=== PATIENT | male | born 1940 | race Caucasian/White ===

== ENCOUNTER 2020-05-09 07:09 | Inpatient (IN) | payer MEDICARE, OTHER ==
[~2020-05-09] VITALS: Ht 190.5 cm; Wt 86.2 kg
--- NOTE | ~2020-05-09 | OP ---
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 POSTOPERATIVE DIAGNOSIS: Severe degenerative joint disease of the left hip. PROCEDURE PERFORMED: Left total hip arthroplasty utilizing the MicroPort system with the following implants, a size 9 press-fit femoral stem, a size 62-mm press-fit hemispherical acetabular shell, a size 36-mm standard length ceramic head, a 36 mm x 62 mm high wall polyethylene liner, and two 6.5 mm x 25 mm self-tapping bone screws. SURGEON: Jonathan Schneider DO REMEDIATION TECHNICIAN: Jose Henry DO REMEDIATION TECHNICIAN #2: Lay Chester DO ANESTHESIA: General with local anesthetic field block. ESTIMATED BLOOD LOSS: 400 mL. DRAINS: None. SPECIMENS: None. COMPLICATIONS: None. CONDITION: Stable to PACU. DISPOSITION: PACU to home. GROSS FINDINGS: Intraoperative examination of left hip demonstrated severe degenerative joint disease of the left hip with complete [place] [address] OPERATIVE REPORT Name: RENETTA CALDERON Room: [facility] Aileen Rao#: [id number] Admission: 05/09/20 Attend Phys: Paxton Johnson Discharge: Date of : 42 Report #: [id number] of the femoral acetabular joint with eburnated bone to the entirety of the acetabulum, the superior aspect of the femoral head with flattening of the femoral head and significant periarticular osteophytic lipping throughout the femoral head as well as the acetabular rim with calcification of the labrum as well as a deficiency of the superior aspect of the acetabulum as well as normal joint effusion and hypertrophic synovitis. INDICATIONS FOR PROCEDURE: The patient is a pleasant 79-year-old male, who has an ongoing left hip pain and weakness for greater than 3 months and has been refractory to conservative care, consisting of rest, ice, nonsteroidal anti-inflammatories, activity modification and home physical therapy exercises. Therefore, the patient was then subsequently diagnosed with severe degenerative joint disease of the left hip and subsequently recommended to undergo left total hip arthroplasty. Therefore, the risks, benefits, treatment options, alternatives, indications were discussed with the patient. Risks include but not limited to damage to surrounding neurovascular structures, continued pain, continued bleeding, need for repeat surgery, leg lengthening, nerve palsies, iatrogenic fracture, rhabdomyolysis, instability requiring reductions and potential revision, DVT, PE, as well as inherent complications of anesthesia. The patient assumed the risks and wishes to proceed with surgery. DESCRIPTION OF PROCEDURE: The patient was seen in the preop holding area where consent was obtained and signed. Left lower extremity was marked and initialed. He was then transferred back to the operative suite and placed supine on the operating room table. He was given the benefit of general anesthetic and he was placed into the right lateral decubitus position with a well placed acetabular roll and all bony prominences were well padded. He was positioned and stabilized utilizing the pegboard and safety strap. Left lower extremity was then sterilely prepped utilizing Hibiclens scrub followed by alcohol rinse and then ChloraPrep x 2 and then draping in a normal sterile fashion. Timeout was then had indicating appropriate patient, procedure to be performed, operative site and operative surgeon, preoperative antibiotics and all other imaging were displayed. All in attendance were in agreeance. Next, the surgery began with a curvilinear incision centered over the anterior aspect of the femur and curving posteriorly by the greater trochanter. Incision was made with a 10 blade scalpel through the skin and subcutaneous tissues and then sharp dissection was then carried out through the subcutaneous fat down to the level of the IT band. Next, the IT band was then incised with a second 10 blade scalpel and then the incision was then extended inferiorly down the femur on the anterior aspect as well as superiorly and curving with the incision. This allowed visualization of the gluteus medius muscles. Charnley retractor was then placed through the IT band with care to visualize the sciatic nerve and to not retract the sciatic nerve; however, protected throughout the entirety of the case. Next, approximately one-third of the inferior aspect of the gluteus medius and minimus conjoined tendon was then elevated off of the capsule with [address] [address] OPERATIVE REPORT Name: RENETTA CALDERON Room: 150-[facility] Jalen#: [id number] Admission: 05/09/20 Attend Phys: Paxton Johnson Discharge: Date of : 42 Report #: [id number] electrocautery. The leg was then gradually externally rotated until full visualization of the capsule was identified. The capsule was then cauterized with Aquamantys and then H capsulotomy was then subsequently performed. Once full superior and inferior capsular flaps were then performed, the hip was then dislocated. The inferior neck of the capsule was then elevated off of the femur with electrocautery until full visualization of the neck and lesser trochanter were able to be palpated as well as the greater trochanter saddle area was able to be identified. Next, the neck cut was then drawn out with electrocautery and then subsequently the neck cut was then performed resecting approximately 1 fingerbreadth above the lesser trochanter and aiming towards the saddle of the greater trochanter. Head and neck were then subsequently removed, at which point, an incision was then subsequently directed to the acetabulum where remaining periosteal sleeves were then subsequently removed and was then cauterized with the Aquamantys and then subsequently removed as well. Hash ledbetter were then placed into the inferior capsule to allow for increased mobility and inability to be retracted. Once a full visualization of the acetabulum was then subsequently identified, the head was then measured to a size 52 mm and therefore reaming began with a size 52 mm and then sequential reaming was then subsequently performed to a size of 61-mm reamer. A 62-mm acetabular shell trial was then performed and determined to have adequate position bite seen. Therefore, the acetabulum was then thoroughly irrigated and there was noted to be significant bleeding bone as well as obliteration of the fovea with care not to penetrate the medial wall. Therefore, the final 62-mm acetabular shell was loaded on the insertion handle and then placed in appropriate position with appropriate version with approximately 10 degrees of anteversion inside that and 45 degrees of abduction. This was then mounted in appropriate position with excellent bite. Once the acetabulum was fully seated, insertion handle was then removed and the 2 cancellous screws were then drilled utilizing a 25-mm drill bit and measured to be 25 mm in length. They were subsequently inserted with full seating with adequate bite. Next, the inside of the cap was then thoroughly irrigated and the acetabular liner was then placed in the appropriate position with the high wall extending from the 11 to 1 o'clock position, malleted into appropriate position with full seating with all tabs being down. Next, attention was then directed to the femur and the leg was then dropped into the bag and externally rotated. The box osteotome was then used to remove the remnant of the neck as well as a rongeur to remove the remnant of the neck. A femoral canal finder was then subsequently placed down the canal followed by lateralizer and then sequential broaching was then performed up to a size 9 femur. This had adequate stability as well as length and version. Next, multiple trials of head and neck combination were then performed with a standard neck and a standard head allowing the full stability without overlengthening the patient. This was then confirmed on intraoperative x-ray. Next, trial components were then subsequently removed. Femur was then thoroughly irrigated and a final size 9 with a standard offset was then malleted into appropriate position with full seating. Inspection of the bone demonstrated no presence of the calcar fracture being evident. Then, a 36-mm ceramic [place] [address] OPERATIVE REPORT Name: KVNGRENETTA Chloe Room: [address] Jalen#: [id number] Admission: 05/09/20 Attend Phys: Macho F. Sudholt, D Discharge: Date of : 41 Report #: [id number] neck length was then placed on the cleansed and dried trunnion and then malleted full seating. This was unable to be removed with a two-finger test. Hip was then finally reduced and determined to have a full range of motion with no dislocation at maximum flexion and abduction or maximum abduction and external rotation with adequate shuck and soft tissue tension. The gluteus medius was able to be reapproximated into the anatomic footprint. Next, the wound was then thoroughly irrigated. The capsule was then closed utilizing #1 Vicryl in [id number] interrupted stitches followed by a repair of the gluteus medius tendon with a #5 Ti-Cron [id number] transosseous bone tunnels and then oversewed with #1 Vicryl. Then, the IT band was then closed utilizing #1 Vicryl in [id number]-dk-[id number] interrupted stitches followed by a running #1 Stratafix. Then, wound was then thoroughly irrigated again and subcutaneous fat was then closed utilizing #1 Vicryl running locking fashion followed by skin closure of a 2-0 Vicryl inverted interrupted subcuticular stitches followed by running 3-0 Stratafix subcuticular stitch, skin glue and then sterile dressing of SelectSilver and then LUIS hose were then applied. Abduction brace was then applied and the patient was then transferred back to PACU in normal stable condition. Sponge and needle counts were correct x [address] Schneider was present for all critical aspects of the case. By: [id number] Schneider, /nt
[~2020-05-09 07:09] MED LIST: LOSARTAN-HCTZ1 EAC3 PO; TRAMADOL 50 MG50 MG PO
[2020-05-09 08:30] VITALS: BP 126/77
[2020-05-09 15:53] VITALS: BP 87/54
[2020-05-09 16:00] VITALS: BP 87/54
--- NOTE | 2020-05-09 16:28 | NUR ---
79 YR OLD MALE ADMITTED TO ROOM 114 S/P LEFT TOTAL KNEE. PT ARRIVED BY BED, GROGGY BUT EASILY AROUSED. PT SETTLED INTO ROOM, ORIENTED TO BED CONTROLS AND CALL LIGHT. PT IS ACCOMPANIED BY HIS NEPHEW AND GIVES HIS PERMISSION TO DISCUSS HIM WITH NEPHEW PRESENT. HIP PRECAUTIONS INITIATED POST OP. DRESSING TO THE LEFT HIP IS C/D/I WITH ICE PACK IN PLACE. FALL PRECAUTIONS AND HOURLY ROUNDING WILL CONTINUE.
[2020-05-09 20:00] VITALS: BP 102/69
[2020-05-10 00:17] VITALS: BP 105/66
[2020-05-10 03:49] LABS: HEMATOCRIT 33.7 % (42.0-52.0); HEMOGLOBIN 11.3 gm/dL (14.0-18.0); MCH 30.8 pg (26.0-34.0); MCHC 33.7 g/dL (28.0-37.0); MCV 91.4 fL (80.0-100.0); MPV 7.3 fl. (7.2-11.1); RBC 3.69 mil/uL (4.50-6.00); RDW-CV 13.7 % (10.5-14.5); WBC 15.8 thou/uL (4.0-11.0)
[2020-05-10 03:55] VITALS: BP 105/62
[2020-05-10 04:10] LABS: ALBUMIN 2.7 g/dL (3.4-5.0); CALCIUM 7.9 mg/dL (8.5-10.1); CREATININE 1.2 mg/dL (0.6-1.3); MAGNESIUM 1.7 mg/dL (1.8-2.4); POTASSIUM 3.9 mmol/L (3.5-5.1); TOTAL BILIRUBIN 0.6 mg/dL (<0.1-1.0); TOTAL PROTEIN 5.6 g/dL (6.4-8.2)
--- NOTE | 2020-05-10 06:40 | NUR ---
Alert and oriented x 4. He has a L hip mepilex dressing which is clean,dry and intact. His vitals are stable. He has O2 at 2L n/c and capno hasn't alarmed much. He was medicated x 2 for pain. He did not void on his own this shift. Bladderscan at 2230 was 683, straight cath was 750 mls. He still has not voided. Bladderscan at 0640 was 87mls. Will continue to monitor.
[2020-05-10 07:30] VITALS: BP 128/69
--- NOTE | 2020-05-10 08:30 | NUR ---
pt upset that he doesn't have something to sit on. say's the recliner chairs are hard. informed him that waffle coushion was ordered and we will bring it in as soon as we get it. c/o breakfast being cold but refused this nurse to warm it up. also c/o not having coffee. coffee on breakfast tray. this nurse went and got him fresh cup of coffee.
--- NOTE | 2020-05-10 10:50 | NUR ---
SPOKE WITH PT. HE WAS IN THE CHAIR. STATED HIS PAIN IS WELL CONTROLLED WITH PAIN MEDS. HE LIVES IN [place], [place].([address] HE HOPES TO GO HOME TODAY. HIS NEPHEW WILL COME TO PICK HIM UP. HE IS ALREADY HERE IN . HE WILL DRIVE HIM UP TO [facility], SO PT.WOULD LIKE TO GET EARLY START POSSIBLE. SON IS COMING FROM [place] TO STAY WITH HIM LONG NEEDED. SON IS RETIRED. PT.HAS A FRONT WHEEL WALKER THAT IS HIS FROM HOME. HE USES [facility] IN [place]. TOLD HIM I WOULD CALL IN BLOOD THINNER BUT COULD NOT CALL IN PAIN MEDS. HE UNDERSTOOD. HE WOULD LIKE TO SEE FOR FOLLOW UP IN THE [facility] OFFICE IF POSSIBLE. CM WILL MAKE APPT.
--- NOTE | 2020-05-10 14:44 | NUR ---
pt unable to urinate. 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 bladder scan shows over 700mls in bladder. moreira cath 16 nepali inserted without difficulty and obtained 700 mls out with urine still in tubing noted. patient tolerated well.
--- NOTE | 2020-05-10 15:00 | NUR ---
PT UNSURE IF HE WANTS TO FOLLOW UP IN [place] [facility]. BOTH OFFICE PHONE NUMBERS PUT ON DISCHARGE INSTRUCTIONS. LEFT MESSAGE AT OFFICE TO SEE IF HE WANTS PT.TO HAVE HOME HEALTH AT DISCHARGE. NO REUTRN CALL. NURSING TO ASK RESIDENT IN AM. CM CALLED IN PRESCRIPTION WRITTEN FOR SALLY TO HIS PHARMACY[facility] IN [facility]-[phone]. NURSING WILL NEED TO CALL IN AM TO GET COPAY.
[2020-05-10 16:02] VITALS: BP 131/72
[2020-05-10 17:06] VITALS: BP 131/72
--- NOTE | 2020-05-10 18:20 | NUR ---
A&OX 4, A LITTLE FOREGETFUL AT TIMES. PWD. LEFT HIP DRESSING C, D, & I. IV LEFT AC WITH 1/2 NS AT 80MLS/HR. LUNGS CLEAR, HEART TONES REGULAR. +BS X 4 QUADS. PEDAL PULSES PRESENT 2+ NO EDEMA NOTED. HAS THIGH HIGH TEDS ON. FOOT PUMPS WHEN IN BED. ICE TO LEFT HIP. C/O CHAIR BEING TO HARD FOR BOTTOM. WAFFLE CUSHION OBTAINED AND PUT ON CHAIR FOR PATIENTS COMFORT. UNABLE TO URINATE TODAY. ORDER OBTAINED FOR INDWELLING NDIAYE CATH. 16 PORTUGUESE INSERTED WITHOUT DIFFICULTY AND OBTAINED 700MLS RAPID RETURN. SITTING UP IN CHAIR MOST OF DAY VISITING WITH SON. MAG 1.7 IV MAG GIVEN PER ORDER. NO OTHER C/O, WILL CONTINUE TO MONITOR.
[2020-05-10 22:00] VITALS: BP 109/55
[2020-05-11 04:00] VITALS: BP 113/54
--- NOTE | 2020-05-11 05:16 | NUR ---
PATIENT ALERT AND ORIENTED X 4 WITH SOME FORGETFULNESS. HOURLY ROUNDING COMPLETED. DRESSING LEFT HIP CLEAN AND DRY. ABDUCTION WEDGE IN PLACE. REFUSED TURNS. HEELS ELEVATED UP OFF OF BED. COTTON PLACED BETWEEN 5TH AND 4TH TOES ON LEFT FOOT DUE TO PAIN CAUSED WITH THE SQUEEZING OF LUIS HOSE AND FOOT PUMPS. PATIENT STATED THIS WAS EFFECTIVE. MEDICATED FOR PAIN LEFT HIP X 1 THIS SHIFT TO GOOD EFFECT. FALL PRECAUTIONS IN PLACE. PASSING GAS BUT NO BM THIS SHIFT. BOWEL MEDICATIONS PROVIDED HS. NDIAYE PATENT TO DEPENDENT DRAINAGE WITH ADEQUATE URINARY OUTPUT. VITAL SIGNS STABLE. CONTINUE TO MONITOR.
[2020-05-11 05:18] LABS: HEMATOCRIT 28.3 % (42.0-52.0); HEMOGLOBIN 9.7 gm/dL (14.0-18.0)
[2020-05-11] MEDS ORDERED: FLOMAX0.4 MG PO (15:37)
[2020-05-11] MEDS ORDERED: ELIQUIS2.5 MG PO (15:41)
[2020-05-11] MEDS ORDERED: COLACE 100 MG100 MG PO (15:42)
[2020-05-11] MEDS ORDERED: ROXICODONE5 M2 PO (15:43)
[2020-05-11] MEDS ORDERED: METAMUCIL1 EAC1 PO (15:47)
[2020-05-11 15:50] VITALS: BP 113/54
--- NOTE | 2020-05-11 19:07 | NUR ---
PATIENT DISCHARGED AT 1640 TO HOME WITH FAMILY PER DR. JORDAN. PATIENT ABLE TO URINATE AFTER NDIAYE CATHETER DC. PATIENT SENT HOME WITH PRESCRIPTIONS AND EDUCATIONAL MATERIAL.
== END 2020-05-11 16:40 | disposition home or self-care (01) | DRG 470 ==
LOC: M.TBA 07:09 → M.ORTHSURG 13:59 → M.PRE 14:06 → M.ORTHSURG 05-10 12:53
PROVIDERS: Family Medicine; Orthopaedic Surgery; ADMIT Internal Medicine; ATTEND Internal Medicine
DX: M16.12 Unilateral primary osteoarthritis, left hip (principal); I10 Essential (primary) hypertension; F17.210 Nicotine dependence, cigarettes, uncomplicated; M17.5 Other unilateral secondary osteoarthritis of knee; Z96.1 Presence of intraocular lens; Z20.828 Contact with and (suspected) exposure to other viral communicable diseases; Z96.641 Presence of right artificial hip joint; Z98.42 Cataract extraction status, left eye; Z98.41 Cataract extraction status, right eye